=== PATIENT | female | born 1960 | race Caucasian/White ===

== ENCOUNTER → 2017-11-06 | Outpatient (CLI) | payer OTHER ==
[2017-11-06 10:42] LABS: HEMATOCRIT 45.3 % (37.0-47.0); HEMOGLOBIN 15.5 g/dl (12.0-16.0); MEAN CELL VOLUME 88.1 fl (81.0-99.0); MEAN CORPUSCULAR HGB 30.2 pg (27.0-31.0); MEAN CORPUSCULAR HGB CONC 34.2 g/dl (33.0-37.0); MEAN PLATELET VOLUME 9.5 fl (9.6-12.3); RED BLOOD COUNT 5.14 10*6/uL (4.10-5.10); RED CELL DISTRI WIDTH 12.8 % (0-14.5); WHITE BLOOD COUNT 10.8 10*3/uL (4.8-10.8)
[2017-11-06 11:11] LABS: ALBUMIN 4.3 gm/dl (3.1-4.5); ALKALINE PHOSPHATASE 77 U/L (45-117); BUN 12 mg/dl (7-24); CHLORIDE 106 mmol/L (98-107); CHOLESTEROL 221 mg/dL (<200); CREATININE 1.06 mg/dL (0.55-1.02); HDL CHOLESTEROL 87 mg/dl (40-60); LDL CHOLESTEROL 109 mg/dL (9-159); POTASSIUM 3.8 mmol/L (3.5-5.1); SGOT/AST 22 IU/L (3-35); SGPT/ALT 18 U/L (12-78); SODIUM 141 mmol/L (136-145); TOTAL PROTEIN 7.6 gm/dL (6.4-8.2); TRIGLYCERIDES 126 mg/dl (<150); VLDL CHOLESTEROL 25 mg/dL (6-40)
== END | disposition home or self-care (01) ==
LOC: LAB 10:29
PROVIDERS: Family Medicine
DX: E78.00 Pure hypercholesterolemia, unspecified (principal); R09.89 Other specified symptoms and signs involving the circulatory and respiratory systems; E55.9 Vitamin D deficiency, unspecified; R53.83 Other fatigue; F17.200 Nicotine dependence, unspecified, uncomplicated

== ENCOUNTER → 2017-11-13 | Outpatient (CLI) | payer OTHER | END | disposition home or self-care (01) | LOC: LAB 09:02 | DX: E74.9 Disorder of carbohydrate metabolism, unspecified (principal) ==

== ENCOUNTER → 2018-09-06 | Outpatient (CLI) | payer OTHER | END | disposition home or self-care (01) | LOC: CARD 02:26 | DX: I08.3 Combined rheumatic disorders of mitral, aortic and tricuspid valves (principal) ==

== ENCOUNTER → 2019-07-16 | Outpatient (CLI) | payer OTHER ==
[~2019-07-16] MED LIST: HYDROCHLOROTH12.5 M2 PO; LISINOPRIL10 M1 PO; METFORMIN HCL500 M2 PO
--- NOTE | ~2019-07-16 | ST ---
[place], [place] EXERCISE STRESS TEST REPORT NAME: JESSICA CASANOVA UNIT #: [id number] ROOM: DOCTOR: ROBB KHAN MD BIRTHDATE: [birth year] DOS: 07/16/2019 PROCEDURE: Exercise portion of the Lexiscan Cardiolite stress test. The patient walked on the Thang protocol over 6 minutes. Heart rate is 138, which is 85% predicted heart rate. Procedure terminated with completion of protocol. Baseline cardiogram, sinus rhythm with exercise, the patient had a couplet. No chest discomfort, no EKG changes. Blood pressure and heart rate responses normal. FINAL IMPRESSION: No EKG changes with exercise. No chest pain with exercise. No dysrhythmia ____. Nuclear images are reported separately. ROBB KHAN MD CM:STRESS:EXERCISE STRESS TEST REPORT [id number] ROBB KHAN MD
--- NOTE | 2019-07-16 07:30 | NUR ---
INFORMED CONSENT SIGNED FOR CARDIOLYTE STRESS TEST WITH DR. KHAN. RESTING EKG NSR, HR 68, BP 124/80. COMPLETED 6:20 OF A TWO MINUTE FALLON PROTOCOL COMPLETING 2:20 OF A HELD STAGE III, 3.4 MPH/14% GRADE. PEAK HEART RATE OF 138 ACHIEVED WHICH IS 85% PREDICTED MAXIMUM AND A PEAK BP OF 190/50. TEST TERMINATED D/T FATIGUE. PVC'S NOTED WITH NO ST CHANGES. HAS A GOOD EXERCISE TOLERANCE. LAST RECOVERY HR 81, BP 138/66. WAITING NUCLEAR SCANNING IN STABLE CONDITION.
== END | disposition home or self-care (01) ==
LOC: CARD 00:55
DX: R94.31 Abnormal electrocardiogram [ECG] [EKG] (principal)

== ENCOUNTER → 2021-02-05 | Outpatient (CLI) | payer OTHER | END | disposition home or self-care (01) | LOC: RAD 09:00 | PROVIDERS: ATTEND Family Medicine | DX: M85.89 Other specified disorders of bone density and structure, multiple sites (principal) ==

== ENCOUNTER 2025-05-29 07:56 | Emergency (ER) | payer OTHER ==
[~2025-05-29] VITALS: Wt 70.3 kg
[2025-05-29] MEDS ORDERED: PREDNISONE20 M1 PO (09:14)
[2025-05-29] MEDS ORDERED: METHOCARBAMOL750 M1 PO (09:14)
== END 2025-05-29 09:25 | disposition home or self-care (01) ==
LOC: ED 07:56
DX: S86.912A Strain of unspecified muscle(s) and tendon(s) at lower leg level, left leg, initial encounter (principal); Z79.899 Other long term (current) drug therapy; Z79.84 Long term (current) use of oral hypoglycemic drugs; Z98.890 Other specified postprocedural states; W18.09XA Striking against other object with subsequent fall, initial encounter; Y93.89 Activity, other specified; Y92.89 Other specified places as the place of occurrence of the external cause; Y99.8 Other external cause status

== ENCOUNTER → 2025-07-09 | Outpatient (CLI) | payer OTHER ==
[~2025-07-09] MED LIST changes: +METHOCARBAMOL750 M1 PO; +PREDNISONE20 M1 PO
== END | disposition home or self-care (01) ==
LOC: RAD 06-23 09:30
PROVIDERS: ATTEND Family Medicine
DX: M85.89 Other specified disorders of bone density and structure, multiple sites (principal); Z13.820 Encounter for screening for osteoporosis